=== PATIENT | female | born 2005 | race Caucasian/White ===

== ENCOUNTER 2025-01-04 17:40 | Emergency (ER) | payer MEDICAID ==
[~2025-01-04] VITALS: Ht 157.5 cm; Wt 60.0 kg
[2025-01-04] MEDS: KETOROLAC 30MG/ML VIAL IM ONE (21:02)
[2025-01-04] MEDS: PREDNISONE 20MG TABLET PO ONE (21:02)
[2025-01-04 21:16] VITALS: PULSE 83; RESP 20; O2SAT 97
[2025-01-04] MEDS: ALBUTEROL (0.083%) 2.5MG/3ML NEB HHN ONE (21:16)
[2025-01-04] MEDS ORDERED: ALBU18HF2 IH (21:56)
[2025-01-04] MEDS ORDERED: ACET-2708 MT (21:56)
[2025-01-04] MEDS ORDERED: P50 MT (21:56)
[2025-01-04 22:12] VITALS: BP 129/63; PULSE 88; RESP 20; TEMP 36.9; O2SAT 99
== END 2025-01-04 22:13 | disposition home or self-care (01) ==
LOC: ER 17:40
DX: B34.9 Viral infection, unspecified (principal); Z20.822 Contact with and (suspected) exposure to COVID-19
CPT/HCPCS: 81025; 71045; 94640; 96372; 99284; 87426; J7512; J1885; Z7610 ×3; 94070; 94664; 98960